=== PATIENT | male | born 1985 | race Hispanic/Latino ===

== ENCOUNTER 2017-03-15 07:48 | Emergency (ER) | payer SELFPAY ==
[2017-03-15 08:01] VITALS: BP 135/80; PULSE 89; RESP 16; TEMP 97.8; O2SAT 100; BMI 27.2
[2017-03-15] MEDS ORDERED: Clindamycin 600 MG in Sodium Chloride 0.9% 100 ML IVPB STA (08:35)
--- NOTE | 2017-03-15 09:01 | ED PDOC ---
HPI: Dental Pain/Injury Time Seen by Provider: 03/15/17 08:03 Chief Complaint (Nursing): Dental Pain Chief Complaint (Provider): Facial swelling History Per: Patient History/Exam Limitations: no limitations Onset/Duration Of Symptoms: Days (2) Current Symptoms Are (Timing): Still Present Additional Complaint(s): Pt reports pain to R upper molar X 2 days, woke up with swelling to R side of face and under eye, took 4 Advil tablets prior to ED presentation. Denies fever , eye pain, visual changes, throat swelling. Past Medical History Reviewed: Nursing Documentation, Vital Signs Vital Signs: Last Vital Signs Temp 97.8 F 03/15/17 07:52 Pulse 89 03/15/17 07:52 Resp 16 03/15/17 07:52 BP 135/80 03/15/17 07:52 Pulse Ox 100 03/15/17 07:52 - Medical History PMH: Asthma (CHILDHOOD) - Family History Family History: States: No Known Family Hx - Living Arrangements Living Arrangements: With Friends/Others - Social History Current smoker - smoking cessation education provided: No Alcohol: None - Home Medications Home Medications: Ambulatory Orders Medication Instructions Recorded Cephalexin [cephalexin] 500 mg PO BID #20 cap 07/31/15 Amoxicillin/Clavulanate [Augmentin 1 tab PO BID #20 tab 03/15/17 875 MG-125 MG] Naproxen [Naprosyn] 500 mg PO BID PRN #15 tablet 03/15/17 - Allergies Allergies/Adverse Reactions: Allergies Allergy/AdvReac Type Severity Reaction Status Date / Time No Known Allergies Allergy Verified 03/15/17 07:57 Review of Systems Constitutional: Negative for: Fever, Chills Eyes: Negative for: Pain, Vision Change, Conjunctivae Inflammation, Eyelid Inflammation, Redness ENT: Positive for: Mouth Pain. Negative for: Mouth Swelling, Throat Pain, Throat Swelling Respiratory: Negative for: Cough, Shortness of Breath Skin: Negative for: Rash, Lesions Neurological: Negative for: Weakness, Numbness Physical Exam - Reviewed Nursing Documentation Reviewed: Yes Vital Signs Reviewed: Yes - Physical Exam Appears: Positive for: Well, No Acute Distress Skin: Positive for: Normal Color, Warm, Dry Eye Exam: Positive for: EOMI, PERRL, Periorbital swelling (Infraorbital). Negative for: Periorbital tenderness, Conjunctival injection ENT: Positive for: Pharynx Is (Clear), Other (Dental caries R upper dentition, no gingival bleeding, no gingival fluctuance, no discharge). Negative for: Sinus Pain/Drainage, Nasal Congestion, Pharyngeal Erythema, Tonsillar Exudate, Tonsillar Swelling Neck: Positive for: Normal, Painless ROM, Supple Cardiovascular/Chest: Positive for: Regular Rate, Rhythm Respiratory: Positive for: Normal Breath Sounds Neurologic/Psych: Positive for: Alert, housing coordinator II-XII, Oriented. Negative for: Motor/Sensory Deficits, Facial Droop - Laboratory Results Result Diagrams: 03/15/17 09:00 03/15/17 09:00 - ECG O2 Sat by Pulse Oximetry: 100 - CT Scan/US CT facial bones Other Rad Studies (CT/US): Radiology Report Reviewed (Extensive pansinus disease. Unremarkable appearance of the orbits and periorbital soft tissues.) - Physician Consult Information Time Consulting Physican Contacted: 12:31 Physician Contacted: Haris Morales Outcome Of Conversation: Findings discussed, states c/w midfacial infection, recommends OMFS consult. Medical Decision Making Medical Decision Makin yo with R facial swelling and dental caries. - labs - CT facial bones - Clindamycin - Morphine 13:[address] Gaitan ([facility] resident @ [facility]), can discharge home with Rx Augmentin, will see patient tomorrow @ 8:30 AM in [facility] ([address] [place] [address]). Findings discussed with patient and in detail and importance of close follow-up. Copy of labs and CT report given to patient. Disposition - Clinical Impression Clinical Impression: Dental caries, Pansinusitis - Disposition Disposition: Routine/Home Disposition Time: 12:35 Condition: IMPROVED Additional Instructions: FOLLOW-UP WITH [facility] TOMORROW @ 8:30 AM WITHOUT FAIL! DR. GAITAN [address] Prescriptions: Amoxicillin/Clavulanate [Augmentin 875 MG-125 MG] 1 tab PO BID #20 tab Naproxen [Naprosyn] 500 mg PO BID PRN #15 tablet PRN Reason: Pain, Moderate (4-7) Instructions: Dental Caries (ED), Sinusitis (ED)
[2017-03-15 09:23] LABS: BASO % 0.3 % (0.0-2.0); EOS % 0.5 % (0.0-4.0); HEMATOCRIT 41.4 % (35.0-51.0); LYMPH # 1.4 K/uL (1.0-4.3); LYMPH % 13.8 % (20.0-40.0); MEAN CELL VOLUME 93.8 fl (80.0-94.0); MEAN CORPUSCULAR HEMOGLOBIN 32.6 pg (27.0-31.0); MEAN CORPUSCULAR HGB CONC 34.8 g/dL (33.0-37.0); MEAN PLATELET VOLUME 7.5 fl (7.2-11.7); MONO % 10.4 % (0.0-10.0); NEUT # 7.5 K/uL (1.8-7.0); RED CELL DISTRIBUTION WIDTH 12.3 % (11.5-14.5)
[2017-03-15 09:30] LABS: ALB/GLOB RATIO 1.3 (1.0-2.1); ALKALINE PHOSPHATASE 65 U/L (38-126); ALT/SGPT 27 U/L (21-72); AST/SGOT 20 U/L (17-59); BILIRUBIN,TOTAL 0.7 mg/dl (0.2-1.3); BLOOD UREA NITROGEN 9 mg/dl (9-20); CALCIUM 8.8 mg/dL (8.4-10.2); CARBON DIOXIDE 25 mmol/L (22-30); CHLORIDE 103 mmol/L (98-107); GFR AFRICAN-AMERICAN > 60; GLUCOSE,RANDOM 111 mg/dL (75-110); POTASSIUM 3.6 MMOL/L (3.6-5.0); SODIUM 138 mmol/l (132-148); TOTAL PROTEIN 6.9 G/DL (6.3-8.2)
[2017-03-15 09:36] LABS: PARTIAL THROMBOPLASTIN TIME 29.4 SECONDS (23.3-32.5)
[2017-03-15] MEDS ORDERED: Sodium Chloride 0.9% 50 ML IV ONE ×2 (10:19→10:31)
[2017-03-15] MEDS ORDERED: Iohexol 300 100 ML IJ ONE (10:19)
--- NOTE | 2017-03-15 11:41 | CT ---
PROCEDURE: CT MAXILLOFACIAL BONES WITHOUT CONTRAST HISTORY: R infraorbital edema COMPARISON: None TECHNIQUE: Contiguous axial CT images of the maxillofacial bones were obtained. Coronal and sagittal reformats were generated. Radiation dose: Total exam DLP = 823 mGy-cm. This CT exam was performed using one or more of the following dose reduction techniques: Automated exposure control, adjustment of the mA and/or kV according to patient size, and/or use of iterative reconstruction technique. FINDINGS: NASAL BONES: Unremarkable. ORBITS: Unremarkable. PARANASAL SINUSES/ MASTOIDS: Severe bilateral ethmoid air cell opacification as well as severe right maxillary sinus disease and mild to moderate left maxillary sinus disease. Bilateral occluded ostiomeatal units. Minimal sphenoid sinus disease as well as mild to moderate left frontal sinus disease. MAXILLA: Unremarkable. MANDIBLE/ TEMPOROMANDIBULAR JOINTS: Unremarkable. SKULL BASE: Unremarkable. TEMPORAL BONES: Middle ears and mastoid grossly unremarkable. OTHER FINDINGS: None. IMPRESSION: Extensive pansinus disease. Unremarkable appearance of the orbits and periorbital soft tissues.
[2017-03-15] MEDS ORDERED: cefTRIAXone (Rocephin) 1 gm Inj ONE (12:00)
[2017-03-15] MEDS ORDERED: Oxycodone/Acetaminophen 5/325 mg Tab ONE (12:56)
[2017-03-15] MEDS ORDERED: Oxycodone/Acetaminophen 5/325 mg Tab PO STA (13:15)
== END 2017-03-15 13:45 | disposition home or self-care (01) ==
LOC: H.ER 07:48
DX: K02.9 Dental caries, unspecified (principal); J32.4 Chronic pansinusitis; J45.909 Unspecified asthma, uncomplicated
CPT/HCPCS: 70481; 80053; 85025; 85610; 85730; 87040; 96365; 96367; 96375; 99282; J0696; J1885; J2270; Q9967